=== PATIENT | male | born 1990 | race Caucasian/White ===

== ENCOUNTER 2016-12-24 18:15 | Emergency (ER) | payer MEDICAID ==
[~2016-12-24] VITALS: Ht 177.8 cm; Wt 119.3 kg
[2016-12-24 20:06] LABS: BASOPHIL % 0.6 % (0-2); PLATELET COUNT 287 x10^3mcL (130-400); RED CELL DISTRIBUTION WIDTH 13.6 % (11.5-14.5)
[2016-12-24 20:14] LABS: CALCIUM 8.9 mg/dL (8.5-10.1); CARBON DIOXIDE 28.9 mmol/L (21-32); CHLORIDE SERUM 103 mmol/L (98-107); CREATININE SERUM 1.1 mg/dL (0.7-1.3); GFR1 > 60 mL/min; GLUCOSE SERUM 94 mg/dL (74-106); POTASSIUM SERUM 3.5 mmol/L (3.5-5.1); SODIUM SERUM 142 mmol/L (136-145)
[2016-12-24 20:18] LABS: ALBUMIN 3.8 g/dL (3.4-5.0); ALKALINE PHOSPHATASE 97 U/L (46-116); ALT/SGPT 28 U/L (16-63); AMYLASE 50 U/L (25-115); AST/SGOT 21 U/L (15-37); BILIRUBIN TOTAL 0.5 mg/dL (0.20-1.00); LIPASE 154 IU/L (73-393); TOTAL PROTEIN, SERUM 7.4 g/dL (6.4-8.2)
[2016-12-24 23:40] VITALS: BP 132/73
== END 2016-12-24 23:40 | disposition home or self-care (01) ==
LOC: ED 18:15
PROVIDERS: Specialist
DX: K80.50 Calculus of bile duct without cholangitis or cholecystitis without obstruction (principal); E66.9 Obesity, unspecified
CPT/HCPCS: 83880; J1885; J2405; J7030; Q0092

== ENCOUNTER 2018-04-17 11:31 | Emergency (ER) | payer MEDICAID ==
[~2018-04-17] VITALS: Ht 180.3 cm; Wt 135.2 kg
[2018-04-17 11:40] VITALS: BP 138/100; Ht 180.3 cm; Wt 135.2 kg
== END 2018-04-17 12:55 | disposition home or self-care (01) ==
LOC: ED 11:31
DX: T23.002A Burn of unspecified degree of left hand, unspecified site, initial encounter (principal); T79.9XXA Unspecified early complication of trauma, initial encounter; X08.8XXA Exposure to other specified smoke, fire and flames, initial encounter; Y93.89 Activity, other specified; Y92.89 Other specified places as the place of occurrence of the external cause; Y99.8 Other external cause status

== ENCOUNTER 2020-08-13 14:04 | Emergency (ER) | payer MEDICAID ==
[~2020-08-13] VITALS: Ht 180.3 cm; Wt 149.2 kg
[2020-08-13 14:24] VITALS: BP 135/93; Ht 180.3 cm; Wt 149.2 kg
== END 2020-08-13 15:50 | disposition home or self-care (01) ==
LOC: ED 14:04
DX: L03.116 Cellulitis of left lower limb (principal)

== ENCOUNTER 2020-10-07 18:02 | Emergency (ER) | payer MEDICAID, SELFPAY ==
[~2020-10-07] VITALS: Ht 180.3 cm; Wt 145.1 kg
[2020-10-07 18:04] VITALS: Ht 180.3 cm; Wt 145.1 kg
[2020-10-07 19:11] VITALS: BP 167/108
== END 2020-10-07 19:11 | disposition home or self-care (01) ==
LOC: ED 18:02
DX: M79.10 Myalgia, unspecified site (principal); R11.2 Nausea with vomiting, unspecified
CPT/HCPCS: U0003